=== PATIENT | female | born 1960 | race Two or more races ===

== ENCOUNTER 2020-05-19 12:33 | Inpatient (IN) | payer OTHER ==
[~2020-05-19] VITALS: Ht 152.4 cm; Wt 59.9 kg
[2020-05-31] MEDS ORDERED: GABAPENT PO (11:35)
[2020-05-31] MEDS ORDERED: ALPRAZOLAM XR2 MG PO (11:35)
[2020-05-31] MEDS ORDERED: CALCIU PO (11:36)
[2020-06-07] MEDS ORDERED: GABAPENTIN100 M2 (16:21)
[2020-06-07] MEDS ORDERED: CALCIUM 600-VI1 EAC2 (16:22)
[2020-06-09] MEDS ORDERED: DICLOFENAC SODI75 MG PO (08:31)
[2020-06-09] MEDS ORDERED: INTESTINEX680 M1 PO (08:31)
== END 2020-06-09 15:10 | disposition home or self-care (01) | DRG 331 ==
LOC: SURH 06-07 07:44 → O/R 06-07 07:44 → SURH 06-07 09:45
PROVIDERS: ADMIT Surgery; ATTEND Surgery
PROC: 0DTN4ZZ Resection of Sigmoid Colon, Percutaneous Endoscopic Approach (ICD-10-PCS; principal; 2020-06-07 12:30)
DX: K57.32 Diverticulitis of large intestine without perforation or abscess without bleeding (principal); R19.4 Change in bowel habit; M79.7 Fibromyalgia; F41.9 Anxiety disorder, unspecified